=== PATIENT | female | born 1930 | race Caucasian/White ===

== ENCOUNTER 2016-08-06 11:03 | Observation (INO) | payer OTHER ==
[2016-08-05 14:20] VITALS: BP 192/94
[2016-08-05 14:34] LABS: BLOOD UREA NITROGEN 41 mg/dL (7-18)
[~2016-08-06] VITALS: Ht 158.8 cm; Wt 69.0 kg
[~2016-08-06 11:03] MED LIST: ALBU18HF PO; ALEN70TA5 PO; CHLO25TA PO; GLUC1CAP13 PO; LORA10TA3 PO; MEVACOR PO; NIFE30TA15 PO; PREN1TAB60 PO; UBID1CAP51 PO
[2016-08-06] MEDS: SODIUM CHLORIDE 0.9% 1,000 ML IV SCH ×3 (11:56→22:14)
[2016-08-06] MEDS ORDERED: MIDAZOLAM 1 MG/ML, 5ML ONE (13:28)
[2016-08-06] MEDS ORDERED: LIDOCAINE 2%, 20ML ONE (13:28)
[2016-08-06] MEDS ORDERED: CEFAZOLIN PMX 1GM/50ML 50 ML ONE (13:28)
[2016-08-06] MEDS ORDERED: FENTANYL PF 100 MCG/2ML ONE (13:28)
[2016-08-06] MEDS ORDERED: CEFAZOLIN 1,000 MG ONE (13:29)
[2016-08-06] MEDS ORDERED: HYDROcodone/APAP 5/325 TABLET PO PRN (14:30)
[2016-08-06] MEDS ORDERED: ALENDRONATE 70 MG TABLET PO SCH (14:30)
[2016-08-06] MEDS ORDERED: CEFAZOLIN PMX 1GM/50ML 50 ML IVPB SCH (16:00)
[2016-08-06 18:52] VITALS: BP 135/68
[2016-08-06] MEDS: SODIUM CHLORIDE FLUSH 10ML SYR IVF SCH (20:41)
[2016-08-06] MEDS: CEFAZOLIN PMX 1GM/50ML 50 ML IV SCH (21:30)
[2016-08-06] MEDS: ALBUTEROL SULFATE 2.5 MG/3 ML NPPB SCH (22:30)
[2016-08-07 01:17] VITALS: BP 115/63
[2016-08-07] MEDS: ALBUTEROL SULFATE 2.5 MG/3 ML NPPB SCH ×2 (02:30→06:30)
[2016-08-07] MEDS: CEFAZOLIN PMX 1GM/50ML 50 ML IV SCH (05:26)
[2016-08-07 08:07] VITALS: BP 156/72
[2016-08-07] MEDS ORDERED: ALBUTEROL SULFATE 2.5 MG/3 ML NPPB PRN (08:30)
[2016-08-07] MEDS ORDERED: ACET325T14 PO (08:42)
[2016-08-07] MEDS ORDERED: VITAMIN E MIXED PO SCH (09:00)
[2016-08-07] MEDS ORDERED: CHLORTHALIDONE 25 MG TABLET PO SCH (09:00)
[2016-08-07] MEDS ORDERED: LORATADINE 10 MG TABLET PO SCH (09:00)
[2016-08-07] MEDS ORDERED: niFEDipine ER 30 MG TABLET.ER PO SCH (09:00)
[2016-08-07] MEDS ORDERED: TEMPLATE NON-FORMULARY MED. (Gluc Su/Msm/Magnesium/Vit C** (Glucosamine Complex-Msm Cap**) PO SCH (09:00)
[2016-08-07] MEDS ORDERED: LOVASTATIN 40 MG TABLET PO SCH (09:00)
[2016-08-07] MEDS ORDERED: UBIDECARENONE PO SCH (09:00)
[2016-08-07] MEDS ORDERED: [UNRECOGNIZED DRUG - OTHER] PO SCH (09:00)
[2016-08-07] MEDS: SODIUM CHLORIDE 0.9% 1,000 ML IV SCH (09:14)
[2016-08-07] MEDS: SODIUM CHLORIDE FLUSH 10ML SYR IVF SCH (09:14)
[2016-08-08] MEDS ORDERED: PRENATAL VIT/IRON/FA 1 EACH TABLET PO SCH (09:00)
== END 2016-08-07 12:50 | disposition home or self-care (01) ==
LOC: CACL 11:03 → ORIP 14:07 → 5SO 16:49
PROVIDERS: ADMIT Internal Medicine Cardiovascular Disease; ATTEND Internal Medicine Cardiovascular Disease
DX: I44.1 Atrioventricular block, second degree (principal); E78.2 Mixed hyperlipidemia; I10 Essential (primary) hypertension; I45.9 Conduction disorder, unspecified; R60.0 Localized edema
CPT/HCPCS: 33208; 36415; 71010; 71020; 80048; 85025; 85610; 93005; 94640; 96365; 96375; 99156; C1779; C1785; C1892; G0378; J0690; J2250; J3010; J3490; J7613

== ENCOUNTER 2016-09-13 21:45 | Inpatient (IN) | payer OTHER ==
[~2016-09-13] VITALS: Ht 157.5 cm; Wt 77.6 kg
[~2016-09-13 21:45] MED LIST changes: +ACET325T14 PO
[2016-09-13] MEDS ORDERED: AMPICILLIN/SULBACTAM 3 GM in SODIUM CHLORIDE 0.9% 100 ML IVPB ONE (23:00)
[2016-09-13] MEDS ORDERED: VANCOMYCIN PER PHARMACY MC PRN (23:00)
[2016-09-13 23:21] LABS: HEMATOCRIT 41.7 % (34.6-47.8); HEMOGLOBIN 13.4 g/dL (11.7-16.4); WHITE BLOOD COUNT 12.6 x10^3/uL (3.4-10)
[2016-09-13] MEDS ORDERED: VANCOMYCIN 2,000 MG in SODIUM CHLORIDE 0.9% 500 ML IV ONE (23:30)
[2016-09-13 23:32] LABS: ASPARTATE AMINO TRANSFERASE 18 U/L (15-37); BLOOD UREA NITROGEN 37 mg/dL (7-18)
[2016-09-14] MEDS ORDERED: LOVA20TA2 PO (00:17)
[2016-09-14] MEDS ORDERED: CLIN300C8 PO (00:18)
[2016-09-14 01:31] VITALS: BP 146/75
[2016-09-14 02:00] VITALS: BP 146/75
[2016-09-14] MEDS ORDERED: TRAZODONE 50MG TABLET PO PRN (03:30)
[2016-09-14] MEDS ORDERED: VANCOMYCIN PER PHARMACY MC PRN (03:30)
[2016-09-14] MEDS ORDERED: hydrALAzine 20 MG/ML, 1ML IVPush PRN (03:30)
[2016-09-14] MEDS ORDERED: BISACODYL 10 MG SUPP PR PRN (03:30)
[2016-09-14] MEDS ORDERED: ACETAMINOPHEN 325 MG TABLET PO PRN (03:30)
[2016-09-14] MEDS ORDERED: DOCUSATE 100 MG CAPSULE PO PRN (03:30)
[2016-09-14] MEDS ORDERED: POLYETHYLENE GLYCOL 17 GM PACKET PO PRN (03:30)
[2016-09-14] MEDS ORDERED: PHARMACOKINETIC CONSULTATION MC ONE (04:00)
[2016-09-14] MEDS ORDERED: PHARMACOKINETIC MONITORING MC PRN (04:00)
[2016-09-14] MEDS: HEPARIN 5,000 UNITS/ML, 1ML SQ SCH ×3 (04:03→20:48)
[2016-09-14] MEDS: SODIUM CHLORIDE 0.9% 1,000 ML IV SCH ×4 (04:04→23:36)
[2016-09-14 06:33] LABS: BLOOD UREA NITROGEN 32 mg/dL (7-18)
[2016-09-14 06:50] VITALS: BP 128/79
[2016-09-14] MEDS: niFEDipine ER 30 MG TABLET.ER PO SCH (07:54)
[2016-09-14] MEDS: AMPICILLIN/SULBACTAM 3 GM in SODIUM CHLORIDE 0.9% 100 ML IV SCH ×2 (11:20→23:36)
[2016-09-14 14:01] VITALS: BP 133/71
[2016-09-14 19:17] VITALS: BP 149/75
[2016-09-14] MEDS: LOVASTATIN 40 MG TABLET PO SCH (20:47)
[2016-09-15 02:59] VITALS: BP 138/77
[2016-09-15] MEDS: HEPARIN 5,000 UNITS/ML, 1ML SQ SCH ×3 (03:06→19:59)
[2016-09-15] MEDS: SODIUM CHLORIDE 0.9% 1,000 ML IV SCH ×3 (06:59→22:02)
[2016-09-15 07:05] VITALS: BP 122/67
[2016-09-15] MEDS: niFEDipine ER 30 MG TABLET.ER PO SCH (10:16)
[2016-09-15] MEDS: AMPICILLIN/SULBACTAM 3 GM in SODIUM CHLORIDE 0.9% 100 ML IV SCH ×2 (11:04→23:15)
[2016-09-15] MEDS ORDERED: VANCOMYCIN 1,500 MG in SODIUM CHLORIDE 0.9% 250 ML IV SCH (13:00)
[2016-09-15 14:10] VITALS: BP 135/77
[2016-09-15] MEDS: COLCHICINE 0.6 MG TABLET PO SCH (15:27)
[2016-09-15] MEDS: LOVASTATIN 40 MG TABLET PO SCH (19:58)
[2016-09-15 20:05] VITALS: BP 139/73
[2016-09-16] MEDS ORDERED: VANCOMYCIN PMX 1GM/200ML 200 ML IVPB SCH (01:00)
[2016-09-16 01:44] VITALS: BP 158/76
[2016-09-16] MEDS: HEPARIN 5,000 UNITS/ML, 1ML SQ SCH ×2 (03:30→14:13)
[2016-09-16] MEDS: SODIUM CHLORIDE 0.9% 1,000 ML IV SCH ×2 (04:55→13:00)
[2016-09-16] MEDS ORDERED: BUPIVACAINE/PF 0.25% ONE (06:29)
[2016-09-16] MEDS ORDERED: BUPIVACAINE/PF 0.5% ONE (06:29)
[2016-09-16] MEDS ORDERED: EPINEPHRINE 1 MG/ML, 1ML ONE (06:30)
[2016-09-16] MEDS ORDERED: THROMBIN 5,000 UNIT VIAL TP ONE (06:30)
[2016-09-16] MEDS ORDERED: MIDAZOLAM 1 MG/ML, 2ML ONE (06:44)
[2016-09-16] MEDS ORDERED: FENTANYL PF 250 MCG/5ML ONE (06:44)
[2016-09-16] MEDS ORDERED: PROPOFOL 10 MG/ML, 20ML ONE (07:02)
[2016-09-16] MEDS ORDERED: LIDOCAINE/PF 1.5%-EPI 1:200K, 30ML ONE (07:08)
[2016-09-16] MEDS ORDERED: LIDOCAINE/PF 1.5-EPI 1:200K, 30 ML INFIL ONE (07:15)
[2016-09-16] MEDS ORDERED: ACETAMINOPHEN 325 MG TABLET PO PRN (07:30)
[2016-09-16] MEDS ORDERED: LABETALOL 5MG/ML, 20ML IV PRN (07:30)
[2016-09-16] MEDS ORDERED: ONDANSETRON 2MG/ML, 2ML IVPush PRN (07:30)
[2016-09-16] MEDS ORDERED: FENTANYL PF 100 MCG/2ML IV PRN (07:30)
[2016-09-16] MEDS ORDERED: METOCLOPRAMIDE 5 MG/ML, 2ML IV PRN (07:30)
[2016-09-16] MEDS ORDERED: morphine SULFATE 10 MG/ML, 1ML IV PRN (07:30)
[2016-09-16] MEDS ORDERED: hydrALAzine 20 MG/ML, 1ML IV PRN (07:30)
[2016-09-16] MEDS ORDERED: OXYcodone 5 MG/5 ML ORAL.SOL UDC PO PRN (07:30)
[2016-09-16] MEDS ORDERED: ALBUTEROL/IPRATROPIUM 2.5MG/0.5MG, 3 ML NPPB PRN (07:30)
[2016-09-16] MEDS ORDERED: OXYcodone 5 MG/5 ML ORAL.SOL UDC ONE (09:02)
[2016-09-16] MEDS ORDERED: ACETAMINOPHEN 650 MG/20.3 ML UDC ONE (09:02)
[2016-09-16] MEDS: AMPICILLIN/SULBACTAM 3 GM in SODIUM CHLORIDE 0.9% 100 ML IV SCH (11:10)
[2016-09-16] MEDS: COLCHICINE 0.6 MG TABLET PO SCH (11:10)
[2016-09-16] MEDS: niFEDipine ER 30 MG TABLET.ER PO SCH (11:10)
[2016-09-16] MEDS ORDERED: COLC0.6T37 PO (13:08)
[2016-09-16] MEDS ORDERED: HYDR-3240 PO (13:08)
[2016-09-16 14:11] VITALS: BP 129/64
== END 2016-09-16 16:30 | disposition home or self-care (01) | DRG 854 ==
LOC: ED 23:59 → EDIP 09-14 00:25 → 4NOR 09-14 01:10
PROVIDERS: ADMIT Internal Medicine; ATTEND Family Medicine
PROC: 0RCW0ZZ Extirpation of Matter from Right Finger Phalangeal Joint, Open Approach (ICD-10-PCS; principal; 2016-09-14)
PROC: 0JBJ0ZZ Excision of Right Hand Subcutaneous Tissue and Fascia, Open Approach (ICD-10-PCS; 2016-09-14)
DX: A41.9 Sepsis, unspecified organism (principal); L02.511 Cutaneous abscess of right hand; L03.011 Cellulitis of right finger; M10.9 Gout, unspecified; M19.90 Unspecified osteoarthritis, unspecified site
CPT/HCPCS: 36415; 80048; 80053; 85025; 85610; 85651; 86140; 87040; 87070; 87075; 87205; 96365; 96375; J0171; J0295; J1644; J2250; J2704; J3010; J3370; J3490; J7030; J7040; J7050